=== PATIENT | male | born 1990 | race Caucasian/White ===

== ENCOUNTER → 2017-02-14 | Outpatient (CLI) | payer OTHER ==
--- NOTE | 2017-02-14 19:11 | REP ---
Clinical: Atypical facial pain. Technique: Fatuma, bilateral oblique views of the mandible. Findings: The mandible appears intact and the bilateral temporomandibular joints appear normal. Dentition is incompletely evaluated and if necessary Panorex should be obtained. Impression: Relatively normal appearance of the mandible. As above. Signed by Jose Burrell MD 02/14/2017 07:02 P
== END ==
LOC: M ADAMS 18:40
PROVIDERS: ATTEND Physician Assistant
DX: G50.1 Atypical facial pain (principal)

== ENCOUNTER 2018-03-27 18:53 | Emergency (ER) | payer OTHER ==
[2018-03-27 19:55] LABS: BASO % 0.3 % (0.0-1.0); EOS # 0.3 10^3/uL (0.0-0.50); EOS % 3.7 % (0.0-3.0); HEMATOCRIT 43.9 % (42.0-52.0); HEMOGLOBIN 15.9 g/dl (13.5-17.5); IMMATURE GRANULOCYTE % 0.4 % (0-3.0); LYMPH # 2.8 10^3/uL (1.5-6.5); LYMPH % 35.9 % (24.0-44.0); MEAN CORPUSCULAR HEMOGLOBIN 32.8 pg (27.0-33.0); MEAN CORPUSCULAR HGB CONC 36.2 g/dl (32.0-36.5); MEAN CORPUSCULAR VOLUME 90.5 fl (80.0-96.0); MONO # 0.5 10^3/uL (0.0-0.8); MONO % 6.3 % (0.0-5.0); NEUTROPHILS # 4.1 10^3/uL (1.8-7.7); NEUTROPHILS % 53.4 % (36.0-66.0); PLATELET COUNT, AUTOMATED 191 10^3/uL (150-450); RED BLOOD COUNT 4.85 10^6/uL (4.30-6.10); WHITE BLOOD COUNT 7.7 10^3/uL (4.0-10.0)
[2018-03-27] MEDS: LORazepam 1 MG TAB PO (20:00)
[2018-03-27] MEDS: NS 1,000 ML IV (20:00)
[2018-03-27 20:15] LABS: D-DIMER QUANT < 270.0 ng/ml (<500)
[2018-03-27 20:15] LABS: ANION GAP 8 MEQ/L (8-16); BLOOD UREA NITROGEN 12 MG/DL (7-18); CARBON DIOXIDE LEVEL 28 MEQ/L (21-32); CHLORIDE LEVEL 105 MEQ/L (98-107); CK-MB VALUE MASS < 1.0 NG/ML (<3.6); CPK CREATINE PHOSPHOKINASE 141 U/L (39-308); CREATININE FOR GFR 1.09 MG/DL (0.70-1.30); GLOMERULAR FILTRATION RATE > 60.0 (>60); GLUCOSE, FASTING 91 MG/DL (70-100); MAGNESIUM LEVEL 2.2 MG/DL (1.8-2.4); POTASSIUM SERUM 4.1 MEQ/L (3.5-5.1); SODIUM LEVEL 141 MEQ/L (136-145); TROPONIN I < 0.02 NG/ML (< 0.10)
[2018-03-27 20:30] LABS: FREE THYROXINE INDEX 4.6 % (1.4-3.8); T UPTAKE 38 % (33-40); THYROXINE (T4) 12.1 UG/DL (4.5-12.0)
== END 2018-03-27 21:03 | disposition home or self-care (01) ==
LOC: M ED 18:53
DX: F41.9 Anxiety disorder, unspecified (principal); R07.89 Other chest pain
CPT/HCPCS: 71045

== ENCOUNTER → 2018-07-05 | Outpatient (CLI) | payer OTHER | LOC: M WUC 11:57 | DX: M79.642 Pain in left hand (principal) | CPT/HCPCS: 73130 ==

== ENCOUNTER → 2018-07-19 | Outpatient (REF) | payer OTHER | LOC: M LAB REF 12:52 | DX: R19.7 Diarrhea, unspecified (principal) | CPT/HCPCS: 87507 ==

== ENCOUNTER 2018-09-18 20:39 | Emergency (ER) | payer OTHER ==
[2018-09-18] MEDS: NORCO, ANEXSIA 5/325MG TABLET (HYDROcodone/ACETAMINOPHEN) PO (21:30)
== END 2018-09-18 22:19 | disposition home or self-care (01) ==
LOC: M ED 20:39
DX: M25.511 Pain in right shoulder (principal); F41.9 Anxiety disorder, unspecified
CPT/HCPCS: 73030

== ENCOUNTER → 2018-11-22 | Outpatient (CLI) | payer OTHER ==
[~2018-11-22] MED LIST: DICL75TA PO
--- NOTE | 2018-11-22 15:25 | REP ---
MRI RIGHT SHOULDER WITHOUT CONTRAST: 11/22/2018. Comparison x-ray: 09/18/2018. Clinical history: Right shoulder pain. Limited range of motion. Trauma 09/17. Rule out instability. Technique standard shoulder protocol was utilized. AC joint shows no widening of the joint space or elevation of the clavicle in relationship to the acromion. There is no marrow signal abnormality in the clavicle. No spurring at the AC joint. The peripheral acromion shows a small spur contributing to some bursal surface fraying of the supraspinatus, but without a tear. The supraspinatus tendon shows some minimal intrasubstance signal representing some tendopathy tendinosis but no full thickness tear or retraction of the tendon nor any atrophy of its muscle belly. The infraspinatus tendon was intact with some mild increased signal in the muscle near the musculotendinous junction while the teres minor tendon shows peritendinous hyperintense signal and some increased signal in the muscle near the musculotendinous junction representing tendonitis and peritendinitis. The subscapularis tendon was grossly intact without a tear. There is some edema in the subscapularis muscle. Small amount of subcoracoid bursal fluid is noted. I do not see a glenohumeral joint effusion. There is no gross labral tear. The biceps tendon is seated in its groove. The intra-articular portion of the biceps appears grossly intact and there is no signal abnormality at the biceps labral junction. Coracoclavicular and coracohumeral ligaments are unremarkable. Impression: 1. There is tendonitis and peritendinitis involving the infraspinatus tendon and some muscle strain at the musculotendinous junction of the subscapularis. No tear of that tendon. 2. The teres minor tendon shows no significant signal abnormality and the muscle was intact. Scapularis mild tendinopathy tendinosis without a tear or atrophy of the muscle. 3. Coracoclavicular and coracohumeral ligaments are intact. The biceps tendon well-seated and its groove and the intra-articular portion unremarkable. 4. No gross labral tear and the biceps labral complex grossly intact but this study would be relatively insensitive for those findings in the absence of a joint effusion. Electronically Signed by Aniket Dejesus MD 11/22/2018 07:54 P
== END ==
LOC: M RAD 06:58
PROVIDERS: ATTEND Orthopaedic Surgery Sports Medicine
DX: M25.511 Pain in right shoulder (principal)

== ENCOUNTER → 2020-07-22 | Outpatient (REF) | payer BC | LOC: M SMT 13:01 | PROVIDERS: ATTEND Urology | DX: Z30.2 Encounter for sterilization (principal) ==

== ENCOUNTER → 2020-09-13 | Outpatient (CLI) | payer BC | LOC: M LABSMTC 13:24 | PROVIDERS: ATTEND Family Medicine | DX: Z20.828 Contact with and (suspected) exposure to other viral communicable diseases (principal) ==

== ENCOUNTER 2022-07-29 10:49 | Emergency (ER) | payer OTHER ==
[~2022-07-29] VITALS: Ht 177.8 cm; Wt 69.5 kg
[2022-07-29] MEDS ORDERED: NORCO, ANEXSIA 5/325MG TABLET (HYDROcodone/ACETAMINOPHEN) PO ONE (12:25)
[2022-07-29] MEDS ORDERED: HYDR-3713 PO (12:29)
[2022-07-29] MEDS ORDERED: MIRA3350 PO (12:29)
[2022-07-29] MEDS ORDERED: IBUP-1022 PO (12:29)
[2022-07-29 12:44] VITALS: BP 107/65
== END 2022-07-29 12:46 | disposition home or self-care (01) ==
LOC: M ED 10:49
DX: S63.501A Unspecified sprain of right wrist, initial encounter (principal); V49.40XA Driver injured in collision with unspecified motor vehicles in traffic accident, initial encounter; F41.9 Anxiety disorder, unspecified; Z79.899 Other long term (current) drug therapy

== ENCOUNTER → 2022-08-10 | Outpatient (CLI) | payer OTHER ==
[~2022-08-10] MED LIST changes: +HYDR-3713 PO; +IBUP-1022 PO; +MIRA3350 PO
== END ==
LOC: M SOG 08:07
PROVIDERS: ATTEND Orthopaedic Surgery Hand Surgery
DX: M25.531 Pain in right wrist (principal); T14.8XXA Other injury of unspecified body region, initial encounter

== ENCOUNTER → 2022-10-25 | Outpatient (CLI) | payer OTHER | LOC: M PLAIMG 07:47 | PROVIDERS: ATTEND Orthopaedic Surgery Hand Surgery | DX: M25.531 Pain in right wrist (principal); T14.8XXA Other injury of unspecified body region, initial encounter ==

== ENCOUNTER 2022-12-27 11:02 | Emergency (ER) | payer OTHER ==
[~2022-12-27] VITALS: Ht 177.8 cm; Wt 70.0 kg
[2022-12-27] MEDS ORDERED: NAPR220C14 PO (11:19)
[2022-12-27] MEDS ORDERED: MEDR4PAK PO (17:14)
[2022-12-27 17:20] VITALS: BP 134/86
== END 2022-12-27 17:23 | disposition home or self-care (01) ==
LOC: M ED 11:02
DX: R20.2 Paresthesia of skin (principal)

== ENCOUNTER → 2023-01-01 | Outpatient (CLI) | payer OTHER ==
[~2023-01-01] MED LIST changes: +ISOVUE-300 61% 100ML VIAL As Ordered ONE; +LIDOCAINE 1% MDV 20ML VIAL As Ordered ONE; +MEDR4PAK PO; +NAPR220C14 PO; +PROHANCE 279.3MG/ML 5ML VIAL As Ordered ONE
== END ==
LOC: M RAD 06:55
PROVIDERS: ATTEND Orthopaedic Surgery Hand Surgery
DX: M25.531 Pain in right wrist (principal)
CPT/HCPCS: 25246; 73223; 77002; A9576; Q9967

== ENCOUNTER → 2023-01-12 | Outpatient (CLI) | payer OTHER ==
[~2023-01-12] MED LIST changes: -ISOVUE-300 61% 100ML VIAL As Ordered ONE; -LIDOCAINE 1% MDV 20ML VIAL As Ordered ONE; -PROHANCE 279.3MG/ML 5ML VIAL As Ordered ONE
== END ==
LOC: M SOG 08:22
PROVIDERS: ATTEND Orthopaedic Surgery
DX: M54.2 Cervicalgia (principal)

== ENCOUNTER 2023-03-30 08:00 | Day surgery (SDC) | payer OTHER ==
[~2023-03-30] VITALS: Ht 177.8 cm; Wt 70.7 kg
[2023-03-30] MEDS ORDERED: ONDANSETRON 4MG 2ML VIAL As Ordered ONE (08:29)
[2023-03-30] MEDS ORDERED: LIDOCAINE 2% 100MG/5ML SDV (FOR ANES.) As Ordered ONE (08:29)
[2023-03-30] MEDS ORDERED: propofoL 200 MG/20 ML VIAL As Ordered ONE (08:29)
[2023-03-30] MEDS ORDERED: KETOROLAC 60MG 2ML VIAL As Ordered ONE (08:29)
[2023-03-30] MEDS ORDERED: fentaNYL 100 MCG/2 ML INJECTION As Ordered ONE (08:34)
[2023-03-30] MEDS ORDERED: MIDAZOLAM INJ 2MG/2ML VIAL As Ordered ONE (08:34)
[2023-03-30] MEDS: BACITRACIN OINTMENT 30GM TUBE As Ordered ONE (10:10)
[2023-03-30] MEDS ORDERED: MORPHINE 2 MG/ML 1ML VIAL IV PRN (10:15)
[2023-03-30] MEDS ORDERED: ONDANSETRON 4MG 2ML VIAL IV PRN (10:15)
[2023-03-30] MEDS ORDERED: fentaNYL 100 MCG/2 ML INJECTION IV PRN (10:15)
[2023-03-30] MEDS ORDERED: KETAMINE HCL 200MG/20ML VIAL As Ordered ONE (10:29)
[2023-03-30] MEDS ORDERED: PERC5TAB12 PO (10:39)
[2023-03-30] MEDS: oxyCODONE 5MG TAB PO PRN (10:48)
[2023-03-30 12:20] VITALS: BP 142/81; TEMP 98.3; O2SAT 98
== END 2023-03-30 12:40 | disposition home or self-care (01) ==
LOC: M SDC 08:00
PROVIDERS: ATTEND Orthopaedic Surgery Hand Surgery
DX: G56.21 Lesion of ulnar nerve, right upper limb (principal); F41.9 Anxiety disorder, unspecified; F32.A Depression, unspecified
CPT/HCPCS: 29999; J1100; J1885; J2250; J2405; J3010; S0020

== ENCOUNTER → 2023-05-11 | Outpatient (CLI) | payer OTHER ==
[~2023-05-11] MED LIST changes: +PERC5TAB12 PO
== END ==
LOC: M PLAIMG 06:59
PROVIDERS: ATTEND Orthopaedic Surgery
DX: M25.512 Pain in left shoulder (principal)

== ENCOUNTER → 2023-05-16 | Outpatient (CLI) | payer OTHER | LOC: M SOG 09:46 | PROVIDERS: ATTEND Orthopaedic Surgery | DX: M51.37 Other intervertebral disc degeneration, lumbosacral region (principal) ==

== ENCOUNTER 2023-05-28 08:12 | Day surgery (SDC) | payer OTHER ==
[~2023-05-28] VITALS: Ht 177.8 cm; Wt 66.2 kg
[~2023-05-28 08:12] MED LIST changes: +ceFAZolin SOD 2 GM in IV 1 EA IV ONE
[2023-05-28] MEDS ORDERED: LR 1,000 ML IV SCH ×2 (08:35→10:55)
[2023-05-28] MEDS ORDERED: ONDANSETRON 4MG 2ML VIAL As Ordered ONE (09:25)
[2023-05-28] MEDS ORDERED: KETOROLAC 60MG 2ML VIAL As Ordered ONE (09:25)
[2023-05-28] MEDS ORDERED: propofoL 200 MG/20 ML VIAL As Ordered ONE (09:25)
[2023-05-28] MEDS ORDERED: LIDOCAINE 2% 100MG/5ML SDV (FOR ANES.) As Ordered ONE (09:25)
[2023-05-28] MEDS ORDERED: MIDAZOLAM INJ 2MG/2ML VIAL As Ordered ONE (09:26)
[2023-05-28] MEDS ORDERED: ACETAMINOPHEN 1000MG 100ML IV BAG As Ordered ONE (09:26)
[2023-05-28] MEDS ORDERED: fentaNYL 100 MCG/2 ML INJECTION As Ordered ONE (09:27)
[2023-05-28] MEDS ORDERED: BACITRACIN OINTMENT 30GM TUBE As Ordered ONE (09:44)
[2023-05-28] MEDS ORDERED: ONDANSETRON 4MG 2ML VIAL IV PRN (10:55)
[2023-05-28] MEDS ORDERED: HYDROMORPHONE HCL 0.5 MG/ 0.5 ML SYRINGE IV PRN (10:55)
[2023-05-28] MEDS ORDERED: PERC5TAB12 PO (11:05)
[2023-05-28] MEDS: oxyCODONE 5MG TAB PO PRN ×2 (11:19→11:59)
[2023-05-28] MEDS: fentaNYL 100 MCG/2 ML INJECTION IV PRN ×4 (11:19→11:49)
[2023-05-28 14:20] VITALS: BP 131/84; TEMP 97; O2SAT 99
== END 2023-05-28 14:20 | disposition home or self-care (01) ==
LOC: M SDC 08:12
PROVIDERS: ATTEND Orthopaedic Surgery Hand Surgery
DX: G56.21 Lesion of ulnar nerve, right upper limb (principal); G56.11 Other lesions of median nerve, right upper limb; Z87.891 Personal history of nicotine dependence
CPT/HCPCS: 64719; 64721; J0131; J0690; J1100; J1885; J2250; J2405; J3010

== ENCOUNTER → 2023-11-13 | Outpatient (REF) ==
[~2023-11-13] MED LIST changes: -ceFAZolin SOD 2 GM in IV 1 EA IV ONE
== END ==
LOC: M PLAIMG 09:47 → M PLARAD 09:47
PROVIDERS: ATTEND Internal Medicine
DX: R52 Pain, unspecified (principal)

== ENCOUNTER → 2024-02-11 | Outpatient (CLI) | payer OTHER ==
[~2024-02-11] MED LIST changes: +ISOVUE-300 61% 100ML VIAL As Ordered ONE; +LIDOCAINE 1% MDV 20ML VIAL As Ordered ONE; +PROHANCE 279.3MG/ML 5ML VIAL As Ordered ONE
== END ==
LOC: M RAD 08:47
PROVIDERS: ATTEND Orthopaedic Surgery Hand Surgery
DX: M25.512 Pain in left shoulder (principal)
CPT/HCPCS: 23350; 73223; 77002; A9576; Q9967